=== PATIENT | female | born 1995 | race African-American/Black ===

== ENCOUNTER 2017-01-19 00:49 | Emergency (ER) | payer MEDICAID ==
[~2017-01-19 00:49] MED LIST: BACT800T5 PO; CLIN1CAP6 PO; MACR100C2 PO
--- NOTE | 2017-01-19 01:35 | PD ---
HPI Chief Complaint Right-sided abdominal pain Date Seen: Jan 19, 2017 Travel History International Travel<30 Days: No Contact w/Intl Traveler<30Days: No Known Affected Area: No History of Present Illness HPI Patient is 22-year-old black female at 28 weeks followed by The for care presents here for right-sided abdominal pain sharp worsens with movement and is been going on for several days at this point. The patient denies bleeding or leakage of fluid or contractions. Baby is active, heart rate tracing is reactive and no contractions seen Para: 0 : 1 History Social History Alcohol Use: No Tobacco Use: No Substance Abuse: No Allergies-Medications (Allergen,Severity, Reaction): Coded Allergies: No Known Allergies (Unverified , 06/08/16) Home Meds Active Scripts Nitrofurantoin Monohydrate Macrocrystals (Macrobid)100 Mg [id number] Mg PO BID #14 CAP Ref 0 Prov:Norma White MD 09/02/16 Clindamycin 300 Mg [id number] Mg PO BID #14 CAP Ref 0 Prov:Norma White MD 09/02/16 Sulfamethoxazole-Trimethoprim DS (Bactrim DS)1 Tab Tab1 Tab PO BID #14 TAB Prov:Kan Reaves MD 06/09/16 Review of Systems Except as stated in HPI: all other systems reviewed are Neg General / Constitutional: No: Fever, Weight Gain, Chills, Other Eyes: No: Diploplia, Blurred Vision, Visual changes, Pain, Photophobia HENT: No: Headaches, Vertigo, Lightheadedness Cardiovascular: No: Irregular Rhythm, Chest Pain or Discomfort, Palpitations, Tachycardia, Syncope, Varicosities, Edema, Cyanosis Respiratory: No: Cough, Short of Breath, Other Gastrointestinal: Abdominal Pain, Hematemesis, Hematochezia, Indigestion, Loss of Appetite, Other Genitourinary: No: Decreased Urinary Output, Oliguria Musculoskeletal: No: Limited ROM, Weakness, Cramping, Edema, Pain Skin: No Rash, No Itching, No Dryness, No Lumps, No Change in Pigmentation, No Change in Nails, No Alopecia, No Lesions Neurologic: No: Weakness, Dizziness, Syncope, Focal Abnormalities, Coordination Problem, Headache, Slurred Speech, Seizures Psychiatric: No: Depression, Suicidal Ideations, Homicidal Ideation Endocrine: No: Heat Intolerance, Cold Intolerance, Polydipsia, Polyuria, Other Physical Exam Narrative GENERAL: Well-nourished, well-developed patient. SKIN: Warm and dry. HEAD: Normocephalic and atraumatic. EYES: No scleral icterus. No injection or drainage. ENT: No nasal drainage noted. Mucous membranes pink. Airway patent. NECK: Supple, trachea midline. No JVD. CARDIOVASCULAR: Regular rate and rhythm without murmurs, gallops, or rubs. RESPIRATORY: Breath sounds equal bilaterally. No accessory muscle use. BREASTS: Bilateral exam showed no masses , no retractions, no nipple discharge. ABDOMEN/GI: Abdomen soft, non-tender, bowel sounds present, no rebound, no guarding no tenderness noted impressing on the right side where she says is hurting no CVA tenderness Gravid to [28-] weeks size Fundal Height: [28-] GENITOURINARY: External Genitalia: intact and normal in appearance BUS glands: [-] Cervix: [-] Closed Dilatation: [-] Closed Effacement: [-] Thick Station: [-3] Membranes: [intact ] Uterine Contractions: [none-] FHT's: Category: 1[-] Baseline: [-144] Reactive: [-yes] Variability: [-mod] Decels: [none-] EXTREMITIES: No cyanosis or edema. BACK: Nontender without obvious deformity. No CVA tenderness. NEUROLOGICAL: Awake and alert. Motor and sensory grossly within normal limits. Five out of 5 muscle strength in all muscle groups. Normal speech. MDM Interpretation(s) The patient is a 22-year-old black female [address] Matthews for OB care and is supposed to see her tomorrow, presenting with right-sided abdominal pain and flank pain for 3 days, is worse when she moves or turns a certain way sharp pain that is almost certainly musculoskeletal muscle strain and pain patient's cervix is closed no contractions noted heart rate tracing is reactive. Plan The patient to institute home bedrest heating pad on her right side, poor oral Tylenol, increase her fluid intake for hydration purposes, to see her OB provider tomorrow Diagnosis Diagnosis: Primary Impression: Abdominal pain during in third trimester Disposition: DISCHARGE HOME Condition: Stable Yonathan Dykes II, MD Jan 19, 2017 01:35
== END 2017-01-19 01:35 | disposition home or self-care (01) ==
LOC: HOBED 00:49
DX: O26.893 Other specified pregnancy related conditions, third trimester (principal); R10.9 Unspecified abdominal pain; Z3A.28 28 weeks gestation of pregnancy
CPT/HCPCS: 99284

== ENCOUNTER 2017-04-28 15:51 | Emergency (ER) | payer MEDICAID ==
[~2017-04-28] VITALS: Ht 154.9 cm; Wt 55.0 kg
[2017-04-28 15:52] VITALS: BP 100/56; PULSE 81; RESP 18; TEMP 98.5; O2SAT 99
--- NOTE | 2017-04-28 16:18 | PD ---
Physical Exam Time Seen by Provider: 16:16 Narrative Pt presents to the ED for evaluation of pain at location of recent over 1 week. States she had a performed 1 month ago. States she is also having malodorous discharge from the wound. VSS. Awaiting bed placement. Data Data Last Documented VS Vital Signs Date Time Temp Pulse Resp B/P Pulse Ox O2 Delivery O2 Flow Rate FiO2 04/28/17 15:52 98.5 81 18 100/56 99 Room Air MDM Supervised Visit with BINDU: Bernice Barfield Apr 28, 2017 16:18
[2017-04-28 17:57] LABS: AUTOMATED NEUTROPHIL # 2.5 TH/MM3 (1.8-7.7); BASOPHIL % 0.6 % (0.0-2.0); EOSINOPHIL # 0.1 TH/MM3 (0-0.4); EOSINOPHIL % 2.4 % (0.0-4.0); HEMATOCRIT 34.8 % (35.0-46.0); HEMO FLAGS DIFF FINAL; LYMPHOCYTE # 1.8 TH/MM3 (1.0-4.8); MEAN CORPUSCULAR HEMOGLOBIN 24.1 PG (27.0-34.0); MEAN CORPUSCULAR HGB CONC 30.4 % (32.0-36.0); MONO % 8.7 % (0.0-8.0); NEUT % 51.3 % (16.0-70.0); PLATELET COUNT 286 TH/MM3 (150-450); RED CELL DISTRIBUTION WIDTH 20.6 % (11.6-17.2); WHITE BLOOD COUNT 4.9 TH/MM3 (4.0-11.0)
[2017-04-28 18:09] LABS: ALT (GPT) 20 U/L (10-53); ANION GAP 7 MEQ/L (5-15); AST (GOT) 18 U/L (15-37); BICARBONATE 28.2 MEQ/L (21.0-32.0); BLOOD UREA NITROGEN 9 MG/DL (7-18); CHLORIDE 108 MEQ/L (98-107); GLOMERULAR FILTRATION RATE 166 ML/MIN (>89); SODIUM (NA) 143 MEQ/L (136-145)
[2017-04-28 18:11] LABS: ALKALINE PHOSPHATASE 84 U/L (45-117); TOTAL BILIRUBIN ADULT 0.4 MG/DL (0.2-1.0)
[2017-04-28] MEDS ORDERED: ACETAMINOPHEN 500 MG CPLT PO ONE (19:30)
[2017-04-28] MEDS ORDERED: IBUPROFEN 400 MG TAB PO ONE (19:30)
--- NOTE | 2017-04-28 20:43 | PD ---
HPI Chief Complaint: Laceration/Skin Injury Time Seen by Provider: 19:16 Travel History International Travel<30 days: No Contact w/Intl Traveler<30days: No Traveled to known affect area: No History of Present Illness HPI Said 22-year-old woman who presents to the emergency department complaining of lower abdominal pain and malodorous vaginal discharge. She had a done on March 24 in celebration 4-28 weeks after her water broke. She states her surgeries done about an hour and a half after her water broke. She had done well initially but is started to develop allergy vaginal discharge, lower abdominal tenderness and pain, this from worsening over the past several weeks. She saw her OB doctor, Dr. Sweeney, about 2 weeks ago. She states she called an appointment but they won't see her until next week. History Past Medical History Narrative Medical Early delivery : 0 Social History Alcohol Use: No Tobacco Use: No Allergies-Medications (Allergen,Severity, Reaction): Coded Allergies: No Known Allergies (Unverified , 04/28/17) Reported Meds & Prescriptions Reported Meds & Active Scripts Active Review of Systems Except as stated in HPI: all other systems reviewed are Neg Physical Exam Narrative GENERAL: Well-appearing 21 year-old woman, no acute distress. SKIN: Focused skin assessment warm/dry. CARDIOVASCULAR: Regular rate and rhythm. No murmur appreciated. RESPIRATORY: No accessory muscle use. Clear to auscultation. Breath sounds equal bilaterally. GASTROINTESTINAL: Abdomen soft, non-tender, nondistended. Hepatic and splenic margins not palpable. MUSCULOSKELETAL: No obvious deformities. No clubbing. No cyanosis. No edema. NEUROLOGICAL: Awake and alert. No obvious cranial nerve deficits. Motor grossly within normal limits. Normal speech. PSYCHIATRIC: Appropriate mood and affect; insight and judgment normal. PELVIC: Normal external female genitalia. Large amount of thin white vaginal discharge, somewhat malodorous. She has moderate diffuse pelvic tenderness with minimal cervical motion tenderness. No palpable uterine enlargement or adnexal masses. Data Data Last Documented VS Vital Signs Date Time Temp Pulse Resp B/P Pulse Ox O2 Delivery O2 Flow Rate FiO2 04/28/17 15:52 98.5 81 18 100/56 99 Room Air Orders Complete Blood Count With Diff (04/28/17 16:54) Comprehensive Metabolic Panel (04/28/17 16:54) Us Pelvis Comp Decker Operator/Non-Preg (04/28/17 ) Ibuprofen (Motrin) (04/28/17 19:30) Acetaminophen (Tylenol) (04/28/17 19:30) Beta Hcg (Quant/Titer) (04/28/17 20:00) Gc And Chlamydia Pcr (04/28/17 20:00) Wet Prep Profile (04/28/17 20:00) Labs Laboratory Tests Test 04/28/17 04/28/17 17:18 20:00 White Blood Count 4.9 TH/MM3 Red Blood Count 4.40 MIL/MM3 Hemoglobin 10.6 GM/DL Hematocrit 34.8 % Mean Corpuscular Volume 79.0 FL Mean Corpuscular Hemoglobin 24.1 PG Mean Corpuscular Hemoglobin 30.4 % Concent Red Cell Distribution Width 20.6 % Platelet Count 286 TH/MM3 Mean Platelet Volume 8.7 FL Neutrophils (%) (Auto) 51.3 % Lymphocytes (%) (Auto) 37.0 % Monocytes (%) (Auto) 8.7 % Eosinophils (%) (Auto) 2.4 % Basophils (%) (Auto) 0.6 % Neutrophils # (Auto) 2.5 TH/MM3 Lymphocytes # (Auto) 1.8 TH/MM3 Monocytes # (Auto) 0.4 TH/MM3 Eosinophils # (Auto) 0.1 TH/MM3 Basophils # (Auto) 0.0 TH/MM3 CBC Comment DIFF FINAL Differential Comment Sodium Level 143 MEQ/L Potassium Level 4.0 MEQ/L Chloride Level 108 MEQ/L Carbon Dioxide Level 28.2 MEQ/L Anion Gap 7 MEQ/L Blood Urea Nitrogen 9 MG/DL Creatinine 0.55 MG/DL Estimat Glomerular Filtration 166 ML/MIN Rate Random Glucose 71 MG/DL Calcium Level 8.5 MG/DL Total Bilirubin 0.4 MG/DL Aspartate Amino Transf 18 U/L (AST/SGOT) Alanine Aminotransferase 20 U/L (ALT/SGPT) Alkaline Phosphatase 84 U/L Total Protein 7.1 GM/DL Albumin 3.3 GM/DL Clue Cells (Wet Prep) PRESENT Vaginal Trichomonas (Wet Prep) NONE SEEN Vaginal Yeast (Wet Prep) NONE SEEN MDM Medical Decision Making Medical Screen Exam Complete: Yes Emergency Medical Condition: Yes Interpretation(s) CBC remarkable for mild anemia. CMP is generally unremarkable. Wet prep has some clue cells GC and chlamydia are pending Pelvic ultrasound: No uterine mass. Trace complex fluid in the endometrial cavity. 2.6 and her left ovarian cyst. Trace free fluid. Differential Diagnosis Retained products, endometritis, postop pain, abscess, UTI, other Narrative Course Medical decision making INITIAL: 22-year-old woman, more than a month postop from with worsening lower abdominal pain and tenderness. She has been sexually active since she had her . His a moderate amount of vaginal discharge. Seems a little bit late for endometritis. Don't think she has an abscess. No fevers or chills or other symptoms. She is a lot of diffuse tenderness and voluntary guarding. Likely treated antibiotics for possible endometritis, outpatient follow-up, send GC and chlamydia for possible PID or cervicitis. Diagnosis Primary Impression: Endometritis Additional Instructions: Take antibiotics as prescribed. Use Naprosyn as needed for pain. Follow-up with your OB doctor in the next 3-5 days as scheduled. Med/Other Pt SpecificInfo: Prescription(s) given Scripts Amoxicillin-Clavulanate (Augmentin)875-125 Mg Tab1 Tab PO BID 14 Days Ref 0 Prov:Jayden Davis MD 04/28/17 Naproxen (Naprosyn)500 Mg Yuh475 Mg PO BID PRN (PAIN SCALE 1 TO 10) #20 TAB Prov:Jayden Davis MD 04/28/17 Disposition: 01 DISCHARGE HOME Condition: Stable Jayden Davis MD Apr 28, 2017 20:43
--- NOTE | 2017-04-28 20:45 | RADRPT ---
EXAM DATE/TIME: 04/28/2017 20:03 [facility] COMPARISON: No previous studies available for comparison. INDICATIONS : Pelvic pain. MEDICAL HISTORY : . Ovarian cysts. SURGICAL HISTORY : section. ENCOUNTER: Initial ACUITY: 1 week PAIN SCORE: 9/10 LOCATION: Bilateral pelvis MEASUREMENTS: UTERUS: 12.1 x 8.8 x 5.6 cm ENDOMETRIAL STRIPE: 7 mm RIGHT OVARY: 2.6 x 1.8 x 1.1 cm LEFT OVARY: 5.2 x 4.3 x 2.9 cm FINDINGS: No uterine mass identified. Endometrial stripe thickness is about 7 mm with trace fluid will some of which is complex. There is a 2.6 cm cyst lower aspect left ovary. Right ovary unremarkable. Trace free fluid. CONCLUSION: 1. No uterine mass. Trace complex fluid in the endometrial cavity. 2.6 cm left ovarian cyst. Trace fr ee fluid. Cyrus Kerr MD on April 28, 2017 at 20:40 Board Certified Radiologist. This report was verified electronically.
[2017-04-28] MEDS ORDERED: NAPR500 PO (21:05)
[2017-04-28] MEDS ORDERED: AUGM875T3 PO (21:05)
[2017-04-28 23:25] LABS: CHLAMYDIA PCR NOT DETECTED (NOT DETECT); NEISSERIA PCR NOT DETECTED (NOT DETECT)
[2017-04-29 02:15] LABS: BETA HCG QUANT LESS THAN 1 MIU/ML (0-5)
== END 2017-04-28 21:53 | disposition home or self-care (01) ==
LOC: NEPD 15:51
DX: O86.12 Endometritis following delivery (principal); N89.8 Other specified noninflammatory disorders of vagina
CPT/HCPCS: 76856; 80053; 84702; 85025; 87210; 87491; 87591; 99284